=== PATIENT | male | born 1960 | race Caucasian/White ===

== ENCOUNTER 2019-12-03 17:22 | Emergency (ER) | payer SELFPAY ==
[2019-12-03 17:47] LABS: Absolute Lymphocytes (CBC) 2.2 K/uL (0.7-4.9); Basophils % 0.9 % (0-1.3); Hematocrit 48.3 % (39.6-49.0); Lymphocytes % 32.4 % (15.3-44.8); MPV 8.2 fL (7.6-11.3); RBC Red Blood Cell Count 4.96 M/uL (4.33-5.43)
[2019-12-03 18:07] LABS: Potassium 3.5 mmol/L (3.5-5.1)
--- NOTE | 2019-12-03 18:09 | RAD REPORT ---
EXAM DESCRIPTION: RAD - Foot Left 3 View - 12/03/2019 6:00 pm CLINICAL HISTORY: laceration injury;Pain, power saw injury COMPARISON: No comparisons FINDINGS: An oblique linear defect is seen in the dorsal margin of the left first proximal phalanx. This area is not well visualized on the lateral view. There are several small bone fragments seen in the soft tissues along the medial margin of the first MTP joint. The bone defect extends from the med ial base to the lateral mid shaft. No other acute bone findings seen. 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 F oreign body assessment is limited due to the bandaging in place. No plantar spur. IMPRESSION: Linear bone defect from the power saw is present in the dorsal surface of the left proxi mal phalanx with multiple small fracture fragments along the medial margin of the first MTP joint. 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
[2019-12-03] MEDS ORDERED: ONDANSETRON 4 MG/2 ML VIAL ONE (18:45)
[2019-12-03] MEDS ORDERED: MORPHINE 4 MG/ML SYR ONE ×2 (18:45→20:08)
[2019-12-03] MEDS ORDERED: LIDOCAINE 1% MPF 30 ML VIAL ONE (18:45)
[2019-12-03] MEDS ORDERED: CEFAZOLIN/SWI 1gm 1 GM/10 ML SYR ONE (18:45)
--- NOTE | 2019-12-03 20:01 | EDPHYS ---
Physician Documentation [facility] Name: Jimi Goetz Age: 59 yrs Sex: Male : 1960 Arrival Date: 12/03/2019 Time: 17:24 Bed 3 Private MD: ED Physician Wilbur Tristan HPI: 12/02 18:19 This 59 yrs old Male presents to ER via Wheelchair with complaints of jr8 Laceration To Foot. 18:19 The patient has a laceration related to: working, occurred at home. The laceration(s) jr8 is(are) located on the left foot. Onset: The symptoms/episode began/occurred acutely, today. Associated signs and symptoms: The patient has no apparent associated signs or symptoms. The patient has not experienced similar symptoms in the past. The patient has not recently seen a physician. Stated that he went to plug his skill saw in. Once he did that the saw started to go in circles. Stated that it went over his first toe left foot causing large laceration . Historical: - Allergies: 17:27 PENICILLINS; sv - PMHx: 17:27 None; sv - PSHx: 17:27 None; sv - Immunization history:: Adult Immunizations up to date. - Social history:: Smoking status: Patient denies any tobacco usage or history of. ROS: 18:19 Eyes: Negative for injury, pain, redness, and discharge, ENT: Negative for injury, jr8 pain, and discharge, Neck: Negative for injury, pain, and swelling, Cardiovascular: Negative for chest pain, palpitations, and edema, Respiratory: Negative for shortness of breath, cough, wheezing, and pleuritic chest pain, Abdomen/GI: Negative for abdominal pain, nausea, vomiting, diarrhea, and constipation, Back: Negative for injury and pain, Neuro: Negative for headache, weakness, numbness, tingling, and seizure. 18:19 MS/extremity: Positive for decreased range of motion, laceration, pain, of the MTP left foot. 18:19 Skin: Positive for laceration(s). Exam: 18:19 Constitutional: This is a well developed, well nourished patient who is awake, alert, jr8 and in no acute distress. Cardiovascular: Regular rate and rhythm with a normal S1 and S2. No gallops, murmurs, or rubs. Normal PMI, no JVD. No pulse deficits. Respiratory: Lungs have equal breath sounds bilaterally, clear to auscultation and percussion. No rales, rhonchi or wheezes noted. No increased work of breathing, no retractions or nasal flaring. Skin: Warm, dry with normal turgor. Normal color with no rashes, no lesions, and no evidence of cellulitis. Neuro: Awake and alert, GCS 15, oriented to person, place, time, and situation. Cranial nerves II-XII grossly intact. Motor strength 5/5 in all extremities. Sensory grossly intact. Cerebellar exam normal. Normal gait. 18:19 Musculoskeletal/extremity: Tendon exam: postive for partial tendon laceration left foot, Patient has approximately 7.5 cm laceration of the MTP region of his first toe left foot. Has decreased extension motion to left toe. No active bleeding at this time. Rest of extremities unremarkable. Normal sensation present. 2+ pulses PT and DP bilaterally . Vital Signs: 17:24 BP 143 / 108; Pulse 108; Resp 20; Temp 98; Pulse Ox 98% ; Weight 63.5 kg; Height 5 ft. sv 10 in. (177.80 cm); Pain 10/10; 19:03 BP 128 / 81; Pulse 89; Resp 18; Pulse Ox 98% on R/A; ph 20:33 BP 121 / 75; Pulse 85; Resp 16; Pulse Ox 99% on R/A; Pain 0/10; rr5 17:24 Body Mass Index 20.09 (63.50 kg, 177.80 cm) sv Tom Coma Score: 17:24 Eye Response: spontaneous(4). Verbal Response: oriented(5). Motor Response: obeys sv commands(6). Total: 15. 19:03 Eye Response: spontaneous(4). Verbal Response: oriented(5). Motor Response: obeys ph commands(6). Total: 15. 20:33 Eye Response: spontaneous(4). Verbal Response: oriented(5). Motor Response: obeys rr5 commands(6). Total: 15. Trauma Score (Adult): 17:24 Eye Response: spontaneous(1); Verbal Response: oriented(1); Motor Response: obeys sv commands(2); Systolic BP: > 89 mm Hg(4); Respiratory Rate: 10 to 29 per min(4); [place] Score: 15; Trauma Score: 12 19:03 Eye Response: spontaneous(1); Verbal Response: oriented(1); Motor Response: obeys ph commands(2); Systolic BP: > 89 mm Hg(4); Respiratory Rate: 10 to 29 per min(4); [place] Score: 15; Trauma Score: 12 20:33 Eye Response: spontaneous(1); Verbal Response: oriented(1); Motor Response: obeys rr5 commands(2); Systolic BP: > 89 mm Hg(4); Respiratory Rate: 10 to 29 per min(4); [place] Score: 15; Trauma Score: 12 Procedures: 20:35 Splinting: Splint applied to left foot using Ortho 3D boot, applied by nurse. Examined jr8 by me, post splint application: neurovascular intact, 2+ distal pulses palpable, brisk capillary refill noted, Patient tolerated well. Laceration: 19:56 Wound Repair of 7.5cm ( 3.0in ) subcutaneous laceration to left first toe. Irregularly jr8 shaped.. Skin/tissue flap noted.. Distal neuro/vascular/tendon intact. Anesthesia: Local anesthetic administered with 10 mls of 1% lidocaine. Wound prep: Extensive cleansing with betadine, Wound irrigation with saline, Wound margin revised minimally, Wound explored extensively, Copious irrigation. Skin closed with 6 3-0 Prolene using interrupted sutures and sterile technique. Patient tolerated well. MDM: 17:25 Patient medically screened. jr8 18:19 ED course: Called Dr. Davidson. Wants us to wash it out and close it for now. Will see deann him in office on Friday. 19:56 Data reviewed: vital signs, nurses notes, lab test result(s), radiologic studies, plain jr8 films. Data interpreted: Pulse oximetry: on room air is 98 %. Interpretation: normal. Counseling: I had a detailed discussion with the patient and/or guardian regarding: the historical points, exam findings, and any diagnostic results supporting the discharge/admit diagnosis, lab results, radiology results, the need for outpatient follow up, a clergy member, to return to the emergency department if symptoms worsen or persist or if there are any questions or concerns that arise at home. 12/02 17:26 Order name: CBC with Diff jr8 12/02 17:26 Order name: Basic Metabolic Panel; Complete Time: 18:17 12/02 17:26 Order name: XRAY Foot LEFT 3 View; Complete Time: 18:17 12/02 17:26 Order name: IV; Complete Time: 17:38 12/02 20:35 Order name: Orthopedic shoe: 3D boot; Complete Time: 20:35 Administered Medications: 18:48 Drug: Ancef 1 grams Route: IVPB; Site: right antecubital; ph 18:53 Follow up: Response: No adverse reaction; IV Status: Completed infusion ph 18:51 Not Given (tetanus UTD): Tetanus-Diphtheria Toxoid Adult 0.5 ml IM once ph 18:52 Drug: morphine 4 mg Route: IVP; Site: right antecubital; ph 18:53 Follow up: Response: No adverse reaction ph 18:52 Drug: Zofran (Ondansetron) 4 mg Route: IVP; Site: right antecubital; ph 18:53 Follow up: Response: No adverse reaction ph 19:02 Drug: Lidocaine (1 %) 1 vials Volume: 20 ml; Route: Infiltration; ph 19:02 Follow up: Response: No adverse reaction ph 20:00 Drug: morphine 4 mg {Note: rass 0.} Route: IVP; Site: right antecubital; rr5 20:35 Follow up: Response: No adverse reaction; RASS: Alert and Calm (0) rr5 Disposition: 12/03 07:09 Co-signature as Attending Physician, Wilbur Tristan MD. [email or web address] Disposition: 12/03/19 19:59 Discharged to Home. Impression: Laceration without foreign body of left great toe without damage to nail, Laceration of muscle and tendon of long extensor muscle of toe at ankle and foot level, left foot, Displaced fracture of proximal phalanx of left great toe. - Condition is Stable. - Discharge Instructions: Laceration Care, Adult, Toe Fracture. - Prescriptions for Cipro 500 mg Oral Tablet - take 1 tablet by ORAL route every 12 hours for 10 days; 20 tablet. Ibuprofen 800 mg Oral Tablet - take 1 tablet by ORAL route every 12 hours As needed take with food; 20 tablet. Tylenol- Codeine #3 300-30 mg Oral Tablet - take 2 tablet by ORAL route every 6 hours As needed; 30 tablet. Doxycycline Hyclate 100 mg Oral Tablet - take 1 tablet by ORAL route every 12 hours; 20 tablet. - Medication Reconciliation Form, Thank You Letter, Antibiotic Education, Prescription Opioid Use form. - Follow up: Korey Dockery DPM; When: 12/06/2019. - Problem is new. - Symptoms have improved. Signatures: Dispatcher [employer] EDMS Neema Owens RN RN Colton Argueta PA PA jr8 [place] Ortiz RN RN Kal Schuler RN RN rr5 Wilbur Tristan MD MD 7 Corrections: (The following items were deleted from the chart) 12/02 19:58 18:19 ED course: Called Dr. Davidson. Wants us to wash it out and close it for now. jr8 Will see him in office on Friday . jr8 20:00 19:59 12/03/2019 19:59 Discharged to Home. Impression: Laceration without foreign body jr8 of left great toe without damage to nail; Laceration of muscle and tendon of long extensor muscle of toe at ankle and foot level, left foot. Condition is Stable. Forms are Medication Reconciliation Form, Thank You Letter, Antibiotic Education, Prescription Opioid Use. Follow up: Dr. Korey Dockery; When: 12/06/2019. Problem is new. Symptoms have improved. jr8 20:36 20:00 12/03/2019 19:59 Discharged to Home. Impression: Laceration without foreign body rr5 of left great toe without damage to nail; Laceration of muscle and tendon of long extensor muscle of toe at ankle and foot level, left foot; Displaced fracture of proximal phalanx of left great toe. Condition is Stable. Discharge Instructions: Laceration Care, Adult, Toe Fracture. Prescriptions for Cipro 500 mg Oral Tablet - take 1 tablet by ORAL route every 12 hours for 10 days; 20 tablet, Ibuprofen 800 mg Oral Tablet - take 1 tablet by ORAL route every 12 hours As needed take with food; 20 tablet, Tylenol-Codeine #3 300-30 mg Oral Tablet - take 2 tablet by ORAL route every 6 hours As needed; 30 tablet, Doxycycline Hyclate 100 mg Oral Tablet - take 1 tablet by ORAL route every 12 hours; 20 tablet. and Forms are Medication Reconciliation Form, Thank You Letter, Antibiotic Education, Prescription Opioid Use. Follow up: Dr. Korey Dockery; When: 12/06/2019. Problem is new. Symptoms have improved. jr8
--- NOTE | 2019-12-03 20:01 | ER ---
Nurse's Notes [facility] Name: Jimi Goetz Age: 59 yrs Sex: Male : 1960 Arrival Date: 12/03/2019 Time: 17:24 Bed 3 Private MD: Diagnosis: Laceration without foreign body of left great toe without damage to nail;Laceration of muscle and tendon of long extensor muscle of toe at ankle and foot level, left foot;Displaced fracture of proximal phalanx of left great toe Presentation: 12/02 17:24 Chief complaint: Patient states: was going to use a swirl saw and turned it on and it sv started turning in circles on the ground and it cut his left great toe. Coronavirus screen: Proceed with normal triage. Patient denies a cough. Patient denies shortness of breath or difficulty breathing. Patient denies measured and/or subjective temperature greater than 100.4F prior to today's visit. Patient denies travel on a cruise ship or to a country the [facility] currently lists as an affected area. Patient denies contact with known and/or suspected case of COVID-19. Ebola Screen: No symptoms or risks identified at this time. Complicating Factors: There are no complicating factors for this patient. Initial Sepsis Screen: Does the patient meet any 2 criteria? HR > 90 bpm. No. Patient's initial sepsis screen is negative. Does the patient have a suspected source of infection? Yes: Bone or joint infection. Risk Assessment: Do you want to hurt yourself or someone else? Patient reports no desire to harm self or others. Onset of symptoms was December 03, 2019. 17:24 Method Of Arrival: Wheelchair sv 17:24 Acuity: EMEKA 2 sv Triage Assessment: 17:24 General: Appears uncomfortable, Behavior is cooperative, anxious. Pain: Complains of sv pain in left first toe. Neuro: Level of Consciousness is awake, alert, obeys commands, Oriented to person, place, time, situation, Moves all extremities. Respiratory: Respiratory effort is even, unlabored, Respiratory pattern is regular, symmetrical. Injury Description: Laceration sustained to left first toe is contaminated, 2.6 to 7.5 cm long, bleeding mildly was sustained 30-60 minutes ago. is bleeding moderately. Historical: - Allergies: 17:27 PENICILLINS; sv - PMHx: 17:27 None; sv - PSHx: 17:27 None; sv - Immunization history:: Adult Immunizations up to date. - Social history:: Smoking status: Patient denies any tobacco usage or history of. Screenin:00 Abuse screen: Denies threats or abuse. Denies injuries from another. Nutritional ph screening: No deficits noted. Tuberculosis screening: No symptoms or risk factors identified. Fall Risk None identified. Assessment: 17:24 Reassessment: Colton ROMERO at the bedside. sv 18:00 General: Appears in no apparent distress. uncomfortable, slender, well groomed, ph Behavior is calm, cooperative, appropriate for age. Pain: Complains of pain in left first toe. Neuro: Level of Consciousness is awake, alert, obeys commands, Oriented to person, place, time, situation. Cardiovascular: Capillary refill < 3 seconds in bilateral fingers Patient's skin is warm and dry. Respiratory: Airway is patent Respiratory effort is even, unlabored, Respiratory pattern is regular, symmetrical. GI: No signs and/or symptoms were reported involving the gastrointestinal system. Derm: Skin is healthy with good turgor, Skin is pink, warm \T\ dry. Musculoskeletal: Circulation, motion, and sensation intact. Injury Description: Laceration sustained to left first toe is jagged, 2.6 to 7.5 cm long, bleeding moderately. 18:54 Reassessment: Patient appears in no apparent distress at this time. Patient and/or ph family updated on plan of care and expected duration. Pain level reassessed. Patient is alert, oriented x 3, equal unlabored respirations, skin warm/dry/pink. NICK Segura at bedside to suture laceration. 19:15 General: Appears in no apparent distress. uncomfortable, Behavior is calm, cooperative, rr5 appropriate for age, ongoing suturing by ED provider. 19:15 Neuro: Level of Consciousness is awake, alert, obeys commands, Oriented to person, rr5 place, time, situation. Cardiovascular: Capillary refill < 3 seconds Patient's skin is warm and dry. Respiratory: Airway is patent Respiratory effort is even, unlabored, Respiratory pattern is regular, symmetrical. : No signs and/or symptoms were reported regarding the genitourinary system. EENT: No signs and/or symptoms were reported regarding the EENT system. Derm: Wound noted left foot Wound is lacerated avulsed wound left big toe. Musculoskeletal: Capillary refill < 3 seconds. 20:35 Reassessment: Patient appears in no apparent distress at this time. Patient is alert, rr5 oriented x 3, equal unlabored respirations, skin warm/dry/pink. discharge instruction given and explained without complaints made. Vital Signs: 17:24 BP 143 / 108; Pulse 108; Resp 20; Temp 98; Pulse Ox 98% ; Weight 63.5 kg; Height 5 ft. sv 10 in. (177.80 cm); Pain 10/10; 19:03 BP 128 / 81; Pulse 89; Resp 18; Pulse Ox 98% on R/A; ph 20:33 BP 121 / 75; Pulse 85; Resp 16; Pulse Ox 99% on R/A; Pain 0/10; rr5 17:24 Body Mass Index 20.09 (63.50 kg, 177.80 cm) sv Tom Coma Score: 17:24 Eye Response: spontaneous(4). Verbal Response: oriented(5). Motor Response: obeys sv commands(6). Total: 15. 19:03 Eye Response: spontaneous(4). Verbal Response: oriented(5). Motor Response: obeys ph commands(6). Total: 15. 20:33 Eye Response: spontaneous(4). Verbal Response: oriented(5). Motor Response: obeys rr5 commands(6). Total: 15. Trauma Score (Adult): 17:24 Eye Response: spontaneous(1); Verbal Response: oriented(1); Motor Response: obeys sv commands(2); Systolic BP: > 89 mm Hg(4); Respiratory Rate: 10 to 29 per min(4); [place] Score: 15; Trauma Score: 12 19:03 Eye Response: spontaneous(1); Verbal Response: oriented(1); Motor Response: obeys ph commands(2); Systolic BP: > 89 mm Hg(4); Respiratory Rate: 10 to 29 per min(4); [place] Score: 15; Trauma Score: 12 20:33 Eye Response: spontaneous(1); Verbal Response: oriented(1); Motor Response: obeys rr5 commands(2); Systolic BP: > 89 mm Hg(4); Respiratory Rate: 10 to 29 per min(4); [place] Score: 15; Trauma Score: 12 ED Course: 17:24 Patient arrived in ED. sv 17:25 Colton Andino PA is PHCP. jr8 17:25 iWlbur Tristan MD is Attending Physician. jr8 17:27 Triage completed. sv 17:27 Arm band placed on. sv 17:30 [place]ia Ortiz, RN is Primary Nurse. ph 17:38 Initial lab(s) drawn, by me, sent to lab. Inserted saline lock: 20 gauge in right lt1 antecubital area, using aseptic technique. 17:38 Basic Metabolic Panel Sent. lt1 17:38 CBC with Diff Sent. lt1 18:02 XRAY Foot LEFT 3 View In Process Unspecified. EDMS 19:01 Patient has correct armband on for positive identification. Bed in low position. Call ph light in reach. Side rails up X 1. Pulse ox on. NIBP on. Door closed. Noise minimized. Warm blanket given. 19:40 Assist provider with laceration repair on left foot that was between 2.6 to 7.5 cm rr5 using sutures. Set up tray. Performed by Colton ROMERO Dressed with 4X4s, Adaptic, Kerlix, Neosporin, Patient tolerated well. 19:58 Korey Dockery DPM is Referral Physician. jr8 20:30 3D boot applied to left foot. rr5 20:30 IV discontinued, intact, bleeding controlled, No redness/swelling at site. Pressure rr5 dressing applied. Administered Medications: 18:48 Drug: Ancef 1 grams Route: IVPB; Site: right antecubital; ph 18:53 Follow up: Response: No adverse reaction; IV Status: Completed infusion ph 18:51 Not Given (tetanus UTD): Tetanus-Diphtheria Toxoid Adult 0.5 ml IM once ph 18:52 Drug: morphine 4 mg Route: IVP; Site: right antecubital; ph 18:53 Follow up: Response: No adverse reaction ph 18:52 Drug: Zofran (Ondansetron) 4 mg Route: IVP; Site: right antecubital; ph 18:53 Follow up: Response: No adverse reaction ph 19:02 Drug: Lidocaine (1 %) 1 vials Volume: 20 ml; Route: Infiltration; ph 19:02 Follow up: Response: No adverse reaction ph 20:00 Drug: morphine 4 mg {Note: rass 0.} Route: IVP; Site: right antecubital; rr5 20:35 Follow up: Response: No adverse reaction; RASS: Alert and Calm (0) rr5 Intake: 17:24 PO: 0ml; Total: 0ml. sv Output: 17:24 Urine: 0ml; Total: 0ml. sv Outcome: 19:59 Discharge ordered by MD. zacarias 20:35 Discharged to home via wheelchair. rr5 20:35 Condition: stable 20:35 Discharge instructions given to patient, Instructed on discharge instructions, follow up and referral plans. medication usage, Demonstrated understanding of instructions, follow-up care, medications, Prescriptions given X 4. 20:36 Patient left the ED. rr5 Signatures: Dispatcher [employer] EDNeema Parnell RN RN Colton Argueta PA PA jr8 [place] Ortiz RN RN ph Roque, Raymond, RN RN rr5 Azul Dennison [facility]
[2019-12-03 20:58] VITALS: TEMP 98; O2SAT 98
[2019-12-03 21:00] VITALS: BP 128/81
== END 2019-12-03 20:36 | disposition home or self-care (01) ==
LOC: ER 17:22
PROC: 0JQR0ZZ Repair Left Foot Subcutaneous Tissue and Fascia, Open Approach (ICD-10-PCS; principal; 2019-12-03)
DX: S96.122A Laceration of muscle and tendon of long extensor muscle of toe at ankle and foot level, left foot, initial encounter (principal); S92.412A Displaced fracture of proximal phalanx of left great toe, initial encounter for closed fracture; W31.2XXA Contact with powered woodworking and forming machines, initial encounter; Y93.89 Activity, other specified; Y92.009 Unspecified place in unspecified non-institutional (private) residence as the place of occurrence of the external cause; Z88.0 Allergy status to penicillin
CPT/HCPCS: 36415; 80048; 85025; 96374; 96375; 99284; J0690; J2405